=== PATIENT | male | born 1960 | race African-American/Black ===

== ENCOUNTER 2019-10-13 09:22 | Emergency (ER) | payer MEDICARE ==
[2019-10-13] MEDS ORDERED: Tetracaine 0.5% OPHTH SOLN/PF 4 ML BOT ONE (09:30)
[2019-10-13] MEDS ORDERED: Fluorescein Opthalmic Strip ONE (09:30)
== END 2019-10-13 09:51 | disposition home or self-care (01) ==
LOC: BURERS 09:22
DX: S05.01XA Injury of conjunctiva and corneal abrasion without foreign body, right eye, initial encounter (principal); X58.XXXA Exposure to other specified factors, initial encounter
CPT/HCPCS: 99283

== ENCOUNTER 2020-12-19 08:58 | Emergency (ER) | payer MEDICARE ==
[2020-12-19] MEDS ORDERED: Cyclobenzaprine 10 MG TAB ONE (09:44)
== END 2020-12-19 09:40 | disposition home or self-care (01) ==
LOC: BURERS 08:58
DX: S86.111A Strain of other muscle(s) and tendon(s) of posterior muscle group at lower leg level, right leg, initial encounter (principal); F17.210 Nicotine dependence, cigarettes, uncomplicated; X50.9XXA Other and unspecified overexertion or strenuous movements or postures, initial encounter
CPT/HCPCS: 99283